=== PATIENT | male | born 1945 | race Caucasian/White ===

== ENCOUNTER 2017-09-04 09:17 | Emergency (ER) | payer MEDICARE, BC ==
[~2017-09-04] VITALS: Ht 177.8 cm; Wt 96.0 kg
[2017-09-04 09:35] VITALS: BP 121/58; PULSE 76; RESP 18; TEMP 97.5; O2SAT 100
[2017-09-04] MEDS ORDERED: XARE15TA PO (10:01)
[2017-09-04] MEDS ORDERED: GABA100C4 PO (10:01)
[2017-09-04] MEDS ORDERED: METO10TA4 PO (10:01)
[2017-09-04] MEDS ORDERED: ISOS30TA3 PO (10:01)
[2017-09-04] MEDS ORDERED: FLOR250C PO (10:01)
[2017-09-04] MEDS ORDERED: CARV12.52 PO (10:01)
[2017-09-04] MEDS ORDERED: FURO40TA PO (10:01)
[2017-09-04] MEDS ORDERED: LEVO100T5 PO (10:01)
[2017-09-04] MEDS ORDERED: ATOR40TA16 PO (10:01)
[2017-09-04] MEDS ORDERED: INSU100V3 SQ (10:01)
[2017-09-04] MEDS ORDERED: SPIR50TA PO (10:01)
[2017-09-04] MEDS ORDERED: OXYC15TA PO (10:01)
[2017-09-04 10:10] LABS: AUTOMATED NEUTROPHIL # 8.5 TH/MM3 (1.8-7.7); BASOPHIL # 0.1 TH/MM3 (0-0.2); BASOPHIL % 0.7 % (0.0-2.0); EOSINOPHIL % 0.2 % (0.0-4.0); HEMATOCRIT 26.5 % (39.0-51.0); HEMOGLOBIN 8.9 GM/DL (13.0-17.0); LYMPH % 5.4 % (9.0-44.0); LYMPHOCYTE # 0.5 TH/MM3 (1.0-4.8); MEAN CELL VOLUME 87.2 FL (80.0-100.0); MEAN CORPUSCULAR HEMOGLOBIN 29.2 PG (27.0-34.0); MEAN CORPUSCULAR HGB CONC 33.4 % (32.0-36.0); MEAN PLATELET VOLUME 7.7 FL (7.0-11.0); MONO % 6.7 % (0.0-8.0); MONOCYTE # 0.7 TH/MM3 (0-0.9); PLATELET COUNT 225 TH/MM3 (150-450); RED BLOOD COUNT 3.04 MIL/MM3 (4.50-5.90); RED CELL DISTRIBUTION WIDTH 20.7 % (11.6-17.2); WHITE BLOOD COUNT 9.8 TH/MM3 (4.0-11.0)
--- NOTE | 2017-09-04 10:10 | RADRPT ---
EXAM DATE/TIME: 09/04/2017 09:54 [facility] COMPARISON: No previous studies available for comparison. INDICATIONS : Shortness of breath. MEDICAL HISTORY : Diabetes mellitus type II. SURGICAL HISTORY : Pacemaker. CABG. ENCOUNTER: Initial ACUITY: 1 day PAIN SCORE: 0/10 LOCATION: Bilateral chest FINDINGS: A single view of the chest demonstrates the lungs to be symmetrically aerated without evidence of mas s, infiltrate or effusion. The heart is enlarged. Possible blunting of the right costophrenic angle . Evidence of prior median sternotomy. Multiple cardiac pacer leads in place. Osseous structures ar e intact. CONCLUSION: Cardiomegaly. Possible right pleural effusion. Meet Wade MD on September 04, 2017 at 10:07 Board Certified Radiologist. This report was verified electronically.
[2017-09-04 10:21] LABS: INTERNATIONAL NORMALIZED RATIO 1.5 RATIO; PROTHROMBIN TIME - PATIENT 15.6 SEC (9.8-11.6)
[2017-09-04 10:22] LABS: AST (GOT) 19 U/L (15-37); BICARBONATE 28.2 MEQ/L (21.0-32.0); BLOOD UREA NITROGEN 75 MG/DL (7-18); CALCIUM 8.5 MG/DL (8.5-10.1); CHLORIDE 94 MEQ/L (98-107); GLOMERULAR FILTRATION RATE 31 ML/MIN (>89); GLUCOSE,RANDOM 73 MG/DL (74-106); SODIUM (NA) 134 MEQ/L (136-145)
[2017-09-04 10:23] LABS: ALT (GPT) 18 U/L (12-78)
[2017-09-04 10:27] LABS: ALKALINE PHOSPHATASE 101 U/L (45-117); TOTAL BILIRUBIN ADULT 1.7 MG/DL (0.2-1.0); TOTAL PROTEIN 6.8 GM/DL (6.4-8.2); TROPONIN I 0.04 NG/ML (0.02-0.05)
[2017-09-04] MEDS ORDERED: ACETAMINOPHEN 325 MG TAB PO ONE (10:45)
[2017-09-04 13:01] VITALS: BP 103/55; PULSE 71; RESP 20; O2SAT 100
--- NOTE | 2017-09-04 13:03 | RADRPT ---
EXAM DATE/TIME: 09/04/2017 12:38 [facility] COMPARISON: No previous studies available for comparison. INDICATIONS : Altered mental status. RADIATION DOSE: 56.35 CTDIvol (mGy) MEDICAL HISTORY : Congestive hearrt failure. skin cancer, diabetes SURGICAL HISTORY : None. ENCOUNTER: Initial ACUITY: 1 day PAIN SCALE: 0/10 LOCATION: Bilateral head TECHNIQUE: Multiple contiguous axial images were obtained of the head. Using automated exposure control and adj ustment of the mA and/or kV according to patient size, radiation dose was kept as low as reasonably a chievable to obtain optimal diagnostic quality images. DICOM format image data is available electro nically for review and comparison. FINDINGS: CEREBRUM: The ventricles ventricles, sulci, and basal cisterns are prominent, characteristic of moderate severi ty central and cortical atrophy.. No evidence of midline shift, mass lesion, hemorrhage or acute inf arction. No extra-axial fluid collections are seen. POSTERIOR FOSSA: The cerebellum and brainstem are intact. The 4th ventricle is midline. The cerebellopontine angle i s unremarkable. EXTRACRANIAL: The visualized portion of the orbits is intact. SKULL: The calvaria is intact. No evidence of skull fracture. CONCLUSION: 1. Moderate central and cortical atrophy. 2. No acute findings in the brain. Meet Wade MD on September 04, 2017 at 13:00 Board Certified Radiologist. This report was verified electronically.
--- NOTE | 2017-09-04 13:43 | PD ---
HPI Chief Complaint: Diabetic Time Seen by Provider: 09:29 Travel History International Travel<30 days: No Contact w/Intl Traveler<30days: No Traveled to known affect area: No History of Present Illness HPI Patient is a 72 year old male who comes in after an episode of AMS. Per EMS, when they arrived, his blood sugar was 46. He drank some orange juice with sugar and his glucose improved as did his mental status. He takes insulin for diabetes. His says when she woke up, he was unresponsive, so she was nervous and called 9-1-1. He has been having issues with too much fluid in his legs. He is on 3 oral diuretics and was taking IV Lasix for the past week. His son says there was some confusion on whether he should be taking the pills along with the IV Lasix, so he was not. He has only recently restarted these. He denies chest pain or SOB. He denies fever or chills. He had not eaten breakfast this morning. Severity is mild to moderate. PFSH Past Medical History Arthritis: Yes Atrial Fibrillation: Yes Cancer: Yes (skin) Cardiac Catheterization: Yes (bypass, stents) High Cholesterol: Yes Congestive Heart Failure: Yes Diabetes: Yes Patient Takes Glucophage: No GERD: Yes Headaches: Yes Hypertension: Yes Inguinal Hernia: Yes Myocardial Infarction: Yes Thyroid Disease: Yes Influenza Vaccination: Yes Past Surgical History Cardiac Surgery: Yes (pacemaker/defib) Pacemaker: Yes (defib) Social History Alcohol Use: No Tobacco Use: No Substance Use: No Allergies-Medications (Allergen,Severity, Reaction): Coded Allergies: codeine (Verified Allergy, Severe, hallucinations, 09/04/17) hydromorphone (Verified Allergy, Severe, hallucinations, 09/04/17) morphine (Verified Allergy, Severe, hallucinations combative, 09/04/17) Reported Meds & Prescriptions Reported Meds & Active Scripts Active Reported Humulin N Inj (Insulin Human NPH) 1,000 Unit/10 Ml Vial 50 Units SQ BID Spironolactone 50 Mg Tab 50 Mg PO DAILY Florastor (Saccharomyces Boulardii) 250 Mg Cap 250 Mg PO BID Xarelto (Rivaroxaban) 15 Mg Tab 15 Mg PO DAILY Oxycodone (Oxycodone HCl) 15 Mg Tab 15 Mg PO Q8H PRN Metolazone 10 Mg Tab 10 Mg PO DAILY Levothyroxine (Levothyroxine Sodium) 100 Mcg Tab 100 Mcg PO DAILY Isosorbide Mononitrate ER (Isosorbide Mononitrate) 30 Mg Yoli 30 Mg PO DAILY Gabapentin 100 Mg Cap 200 Mg PO TID Furosemide 40 Mg Tab 40 Mg PO BID Carvedilol 12.5 Mg Tab 12.5 Mg PO BID Atorvastatin (Atorvastatin Calcium) 40 Mg Tab 40 Mg PO HS Review of Systems Except as stated in HPI: all other systems reviewed are Neg General / Constitutional: No: Fever, Chills HENT: No: Headaches, Lightheadedness Cardiovascular: No: Chest Pain or Discomfort Respiratory: No: Shortness of Breath Gastrointestinal: No: Nausea, Vomiting Musculoskeletal: Positive: Edema, No: Myalgias Neurologic: No: Weakness, Dizziness Physical Exam Narrative GENERAL: Awake and alert, in no acute distress. SKIN: Focused skin assessment warm/dry. Weeping of the right lower extremity. HEAD: Atraumatic. Normocephalic. EYES: Pupils equal and round. No scleral icterus. No injection or drainage. ENT: No nasal bleeding or discharge. Mucous membranes pink and moist. NECK: Trachea midline. No JVD. CARDIOVASCULAR: Regular rate and rhythm. No murmur appreciated. RESPIRATORY: No accessory muscle use. Clear to auscultation. Breath sounds equal bilaterally. GASTROINTESTINAL: Abdomen soft, non-tender, nondistended. MUSCULOSKELETAL: No obvious deformities. No clubbing. No cyanosis. 2+ pitting edema of the lower extremities. NEUROLOGICAL: Awake and alert. No obvious cranial nerve deficits. Motor grossly within normal limits. Normal speech. PSYCHIATRIC: Appropriate mood and affect; insight and judgment normal. Data Data Last Documented VS Vital Signs Date Time Temp Pulse Resp B/P (MAP) Pulse Ox O2 Delivery O2 Flow Rate FiO2 09/04/17 13:01 71 20 103/55 (71) 100 Room Air 09/04/17 09:35 97.5 Orders Orders Iv Access Insert/Monitor (09/04/17 09:29) Complete Blood Count With Diff (09/04/17 09:29) Comprehensive Metabolic Panel (09/04/17 09:29) Troponin I (09/04/17 09:29) B-Type Natriuretic Peptide (09/04/17 09:29) Electrocardiogram (09/04/17 ) Act Partial Throm Time (Ptt) (09/04/17 09:29) Prothrombin Time / Inr (Pt) (09/04/17 09:29) Chest, Single Ap (09/04/17 ) Acetaminophen (Tylenol) (09/04/17 10:45) Ct Brain W/O Iv Contrast(Rout) (09/04/17 ) Labs Laboratory Tests Test 09/04/17 09:42 White Blood Count 9.8 TH/MM3 Red Blood Count 3.04 MIL/MM3 Hemoglobin 8.9 GM/DL Hematocrit 26.5 % Mean Corpuscular Volume 87.2 FL Mean Corpuscular Hemoglobin 29.2 PG Mean Corpuscular Hemoglobin Concent 33.4 % Red Cell Distribution Width 20.7 % Platelet Count 225 TH/MM3 Mean Platelet Volume 7.7 FL Neutrophils (%) (Auto) 87.0 % Lymphocytes (%) (Auto) 5.4 % Monocytes (%) (Auto) 6.7 % Eosinophils (%) (Auto) 0.2 % Basophils (%) (Auto) 0.7 % Neutrophils # (Auto) 8.5 TH/MM3 Lymphocytes # (Auto) 0.5 TH/MM3 Monocytes # (Auto) 0.7 TH/MM3 Eosinophils # (Auto) 0.0 TH/MM3 Basophils # (Auto) 0.1 TH/MM3 CBC Comment DIFF FINAL Differential Comment Prothrombin Time 15.6 SEC Prothromb Time International Ratio 1.5 RATIO Activated Partial Thromboplast Time 34.1 SEC Blood Urea Nitrogen 75 MG/DL Creatinine 2.10 MG/DL Random Glucose 73 MG/DL Total Protein 6.8 GM/DL Albumin 3.0 GM/DL Calcium Level 8.5 MG/DL Alkaline Phosphatase 101 U/L Aspartate Amino Transf (AST/SGOT) 19 U/L Alanine Aminotransferase (ALT/SGPT) 18 U/L Total Bilirubin 1.7 MG/DL Sodium Level 134 MEQ/L Potassium Level 3.6 MEQ/L Chloride Level 94 MEQ/L Carbon Dioxide Level 28.2 MEQ/L Anion Gap 12 MEQ/L Estimat Glomerular Filtration Rate 31 ML/MIN Troponin I 0.04 NG/ML B-Type Natriuretic Peptide 985 PG/ML MDM Medical Decision Making Medical Screen Exam Complete: Yes Emergency Medical Condition: Yes Medical Record Reviewed: Yes Differential Diagnosis hypoglycemia vs electrolyte abnormalities vs infection Narrative Course Patient is a 72 year old male who comes in after an episode of AMS this morning. He was found to have low blood sugar and his mental status improved after improvement of his glucose. Labs done today are similar to previous. He does have lower extremity edema on exam, but no fluid overload of the lungs. CXR shows possible blunting of the costophrenic angle. Last [address] 09/04/17 0000 Signed Impressions: Service Date/Time: Monday, September 04, 2017 12:38 - CONCLUSION: 1. Moderate central and cortical atrophy. 2. No acute findings in the brain. Meet Wade MD Chest X-Ray 09/04/17 0000 Signed Impressions: Service Date/Time: Monday, September 04, 2017 09:54 - CONCLUSION: Cardiomegaly. Possible right pleural effusion. Meet Wade MD CT head shows no acute abnormalities. Patient observed in the ED with no further drops in his blood sugar. He only recently restarted his oral diuretics. He is advised to follow up with his doctors. Advised to make sure he eats to maintain his blood sugar. He is comfortable with discharge at this time. Advised to return as needed for any worsening symptoms. Diagnosis Primary Impression: Hypoglycemia Patient Instructions: General Instructions, Hypoglycemia in a Person with Diabetes (ED) Additional Instructions: Follow-up with your doctor. Take your medications as prescribed. Return to the ED as needed for any worsening symptoms. Disposition: 01 DISCHARGE HOME Condition: Stable Hailey Zeng MD September 04, 2017 13:43
[2017-09-04] MEDS ORDERED: GABAPENTIN 100 MG CAP PO SCH (14:00)
--- NOTE | 2017-09-04 20:42 | EKG ---
Date Performed: 09/04/2017 Time Performed: 09:40:12 PTAGE: 72 years EKG: ATRIAL FLUTTER/TACHYCARDIA WITH ABERRANT CONDUCTION OR VENTRICULAR PREMATURE COMPLEXES ST D EVIATION AND MODERATE T-WAVE ABNORMALITY, CONSIDER ANTEROLATERAL ISCHEMIA ST DEVIATION AND MODERATE T -WAVE ABNORMALITY, CONSIDER INFERIOR ISCHEMIA ABNORMAL ECG NO PREVIOUS TRACING DOCTOR: Paco Bourne Interpretating Date/Time 09/04/2017 20:40:41
== END 2017-09-04 14:59 | disposition home or self-care (01) ==
LOC: NEPE 09:17
DX: E11.649 Type 2 diabetes mellitus with hypoglycemia without coma (principal); R94.31 Abnormal electrocardiogram [ECG] [EKG]; E78.00 Pure hypercholesterolemia, unspecified; I50.9 Heart failure, unspecified; I11.0 Hypertensive heart disease with heart failure; I25.2 Old myocardial infarction; Z79.4 Long term (current) use of insulin; Z95.1 Presence of aortocoronary bypass graft; Z95.810 Presence of automatic (implantable) cardiac defibrillator
CPT/HCPCS: 70450; 71045; 80053; 83880; 84484; 85025; 85610; 85730; 93005; 99285